=== PATIENT | female | born 1960 | race African-American/Black ===

== ENCOUNTER → 2017-02-11 | Outpatient (CLI) | payer BC ==
--- NOTE | 2017-02-11 12:09 | RAD ---
DATE: 02/11/2017 EXAM: DIGITAL SCREEN BILAT W/CAD HISTORY: Routine screening COMPARISON: 01/01/2016 This study was interpreted with the benefit of Computerized Aided Detection (CAD). The breast parenchyma shows scattered fibroglandular densities. Breast parenchyma level B. FINDINGS: An oval-shaped nodule is again noted laterally in the left breast and is unchanged. A previous ultrasound study suggested that this is a cyst. No new or enlarging breast densities are seen. No suspicious microcalcifications are evident. IMPRESSION: Stable mammograms without evidence of malignancy. BI-RADS CATEGORY: 2 BENIGN FINDING(S) RECOMMENDED FOLLOW-UP: 12M 12 MONTH FOLLOW-UP PQRS compliance statement: Patient information was entered into a reminder system with a target due date for the next mammogram. Mammography is a sensitive method for finding small breast cancers, but it does not detect them all and is not a substitute for careful clinical examination. A negative mammogram does not negate a clinically suspicious finding and should not result in delay in biopsying a clinically suspicious abnormality. "Our facility is accredited by the [employer] Mammography [employer]."
--- NOTE | 2017-02-11 17:57 | RAD ---
Left clavicular region ultrasound, 02/11/2017: History: Pain The area of clinical concern in the left periclavicular region was carefully scanned. No cystic or solid mass is seen. Several small lymph nodes are noted in the lower neck without evidence of pathologic enlargement. IMPRESSION: No significant abnormality is detected. If clinical concern persists, CT scanning may be useful for further evaluation.
== END | disposition home or self-care (01) ==
LOC: MAMMO 10:21
PROVIDERS: ATTEND Nurse Practitioner Family
DX: Z12.31 Encounter for screening mammogram for malignant neoplasm of breast (principal); M79.9 Soft tissue disorder, unspecified; E78.5 Hyperlipidemia, unspecified; E55.9 Vitamin D deficiency, unspecified; H92.01 Otalgia, right ear; Z71.6 Tobacco abuse counseling; Z72.0 Tobacco use
CPT/HCPCS: 76881; G0202; 77067

== ENCOUNTER → 2018-04-14 | Outpatient (CLI) | payer BC ==
[~2018-04-14] MED LIST: IOHEXOL 240 MG/ML 50ML VIAL. ONE; IOHEXOL 300 MG/ML 75 ML VIAL. IV ONE
--- NOTE | 2018-04-14 10:01 | RAD ---
Examination: CT of the abdomen pelvis with oral and IV contrast HISTORY: History of epigastric pain, right lower quadrant pain, mass 1 inch superior to the umbilicus. COMPARISON: None available TECHNIQUE: Axial CT images of the abdomen pelvis with oral and IV contrast. Coronal reformats are performed. Exposure: One or more of the following individualized dose reduction techniques were utilized for this examination: 1. Automated exposure control 2. Adjustment of the mA and/or kV according to patient size 3. Use of iterative reconstruction technique FINDINGS: Patchy groundglass airspace opacities identified in the bibasilar lungs. No evidence of free air identified in the abdomen. There is mild diffuse decreased attenuation noted in the liver likely hepatic steatosis. The visualized spleen, adrenals grossly appears unremarkable. The gallbladder is mildly distended. The small bowel is nondilated. The visualized pancreas grossly appears unremarkable. The appendix is normal. Feces and gas noted in the colon. Multiple colon diverticulosis identified. Urinary bladder is mildly distended. The bilateral kidneys enhance symmetrically. Vascular stent in the left iliac vein identified. Mild aortic atherosclerosis. No evidence of lytic bony destructive lesion. IMPRESSION: 1. No acute abdominal findings. 2. Mild hepatic steatosis. 2. Patchy groundglass airspace opacities identified in the bibasilar lungs probably atelectasis. 4. Multiple sigmoid colon diverticulosis. Electronically signed by: Geovany Jones MD (04/14/2018 9:57 AM) [id number]
--- NOTE | 2018-04-15 08:54 | RAD ---
DATE: 04/14/2018 EXAM: DIGITAL SCREEN BILAT W/CAD HISTORY: Screening evaluation COMPARISON: 02/11/2017 and 12/13/2015 screen mammograms This study was interpreted with the benefit of Computerized Aided Detection (CAD ). Breast Density: SCATTERED The breast parenchyma shows scattered fibroglandular densities. Breast parenchyma level B. FINDINGS: Parenchymal distribution is stable. No suspicious calcifications, masses, or distortion. IMPRESSION: BI-RADS CATEGORY: 2 BENIGN FINDING(S) RECOMMENDED FOLLOW-UP: PQRS compliance statement: Patient information was entered into a reminder system with a target due date in 1 year for the next mammogram. Mammography is a sensitive method for finding small breast cancers, but it does not detect them all and is not a substitute for careful clinical examination. A negative mammogram does not negate a clinically suspicious finding and should not result in delay in biopsying a clinically suspicious abnormality. "Our facility is accredited by the [employer] Mammography [employer]." [id number]
== END | disposition home or self-care (01) ==
LOC: CT 08:02
PROVIDERS: ATTEND Nurse Practitioner Family
DX: Z12.31 Encounter for screening mammogram for malignant neoplasm of breast (principal); K57.30 Diverticulosis of large intestine without perforation or abscess without bleeding; K76.0 Fatty (change of) liver, not elsewhere classified; I70.0 Atherosclerosis of aorta; E78.5 Hyperlipidemia, unspecified
CPT/HCPCS: 74177; 77067; Q9966; Q9967

== ENCOUNTER → 2018-06-02 | Outpatient (CLI) | payer BC ==
[~2018-06-02] MED LIST changes: -IOHEXOL 240 MG/ML 50ML VIAL. ONE; -IOHEXOL 300 MG/ML 75 ML VIAL. IV ONE; +MULT1TAB52 PO
--- NOTE | 2018-06-02 11:35 | RAD ---
ABDOMEN LTD History: Abdominal pain, nausea Comparison: None. Findings: Multiple sonographic images of the abdomen are submitted. No focal hepatic lesion is demonstrated although there is coarsening of the hepatic echotexture. There is likely focal fatty sparing near the gallbladder fossa. Right lobe liver measured 14 cm longitudinal. Right kidney measured 10.9 x 4.5 x 4.6 cm, no hydronephrosis. Gallbladder is present without intraluminal abnormality, wall thickening, pericholecystic fluid. Common bile duct is within normal limits at 0.3 cm. There is segmental visualization of the inferior vena cava. Impression: 1. There is coarsening of the hepatic echotexture likely due to hepatic steatosis. Electronically signed by: Melvin Carlisle MD (06/02/2018 11:32 AM) [id number]
== END | disposition home or self-care (01) ==
LOC: US 09:47
PROVIDERS: ATTEND Internal Medicine Gastroenterology
DX: R10.84 Generalized abdominal pain (principal); R11.0 Nausea
CPT/HCPCS: 76705

== ENCOUNTER → 2018-06-14 | Day surgery (SDC) | payer BC ==
[~2018-06-14] MED LIST changes: +ALBUTEROL SULFATE 2.5 MG/3 ML NEBU. NEB PRN; +ATROPINE 0.5 MG/5 ML DISP.SYRIN. IV PRN; +IV RINGERS SOLUTION,LACTATED 1,000 ML IV SCH; +LIDOCAINE 2% PF Vial for OR 5 ML VIAL. ONE; +NALOXONE 0.4 MG/ML VIAL. IV PRN; +ONDANSETRON PF 4 MG/2 ML VIAL. IV PRN; +PROPOFOL 20 ML IV ONE
[2018-06-14 14:15] VITALS: BP 113/60
== END | disposition home or self-care (01) ==
LOC: SURG 13:02
PROVIDERS: ATTEND Internal Medicine Gastroenterology
DX: R10.13 Epigastric pain (principal); R14.0 Abdominal distension (gaseous); E78.00 Pure hypercholesterolemia, unspecified; E55.9 Vitamin D deficiency, unspecified; Z88.0 Allergy status to penicillin; Z88.1 Allergy status to other antibiotic agents; Z79.899 Other long term (current) drug therapy; Z98.890 Other specified postprocedural states; Z82.3 Family history of stroke; Z82.49 Family history of ischemic heart disease and other diseases of the circulatory system; Z87.891 Personal history of nicotine dependence; Z80.0 Family history of malignant neoplasm of digestive organs
CPT/HCPCS: 43239; J2704; J7120; 43235; J2001

== ENCOUNTER → 2018-11-29 | Day surgery (SDC) | payer BC ==
[~2018-11-29] MED LIST changes: +CHOL100013 PO; +OMEG1CAP38 PO; +PANT40TA5 PO; -PROPOFOL 20 ML IV ONE; +PROPOFOL 40 ML IV ONE; +diphenhydrAMINE 50 MG/ML VIAL IV PRN
[2018-11-29 10:15] VITALS: BP 120/69
== END | disposition home or self-care (01) ==
LOC: SURG 07:55
PROVIDERS: ATTEND Internal Medicine Gastroenterology
DX: Z12.11 Encounter for screening for malignant neoplasm of colon (principal); D12.2 Benign neoplasm of ascending colon; D12.5 Benign neoplasm of sigmoid colon; K57.30 Diverticulosis of large intestine without perforation or abscess without bleeding; Z88.0 Allergy status to penicillin; Z88.1 Allergy status to other antibiotic agents; Z79.899 Other long term (current) drug therapy
CPT/HCPCS: 45380; 45385; J2704; J7120; J2001

== ENCOUNTER → 2019-05-19 | Outpatient (CLI) | payer BC ==
[2018-11-29 10:15] VITALS: BP 120/69
[~2019-05-19] MED LIST changes: -ALBUTEROL SULFATE 2.5 MG/3 ML NEBU. NEB PRN; -ATROPINE 0.5 MG/5 ML DISP.SYRIN. IV PRN; -IV RINGERS SOLUTION,LACTATED 1,000 ML IV SCH; -LIDOCAINE 2% PF Vial for OR 5 ML VIAL. ONE; -NALOXONE 0.4 MG/ML VIAL. IV PRN; -ONDANSETRON PF 4 MG/2 ML VIAL. IV PRN; -PROPOFOL 40 ML IV ONE; -diphenhydrAMINE 50 MG/ML VIAL IV PRN
--- NOTE | 2019-05-19 14:13 | RAD ---
DATE: 05/19/2019 12:50 PM EXAM: DIGITAL SCREEN BILAT W/CAD HISTORY: Screening COMPARISON: April 14, 2018 and February 11, 2017 Bilateral full field craniocaudal and mediolateral oblique images were obtained using digital technique. This study was interpreted with the benefit of Computerized Aided Detection (CAD). FINDINGS: Breast Density: SCATTERED The breast parenchyma shows scattered fibroglandular densities. Breast parenchyma level B Unchanged left breast upper outer cyst. No suspicious masses, microcalcifications or architectural distortion is present to suggest malignancy in either breast. The visualized axillae are unremarkable. IMPRESSION: No mammographic evidence of malignancy. BI-RADS CATEGORY: 2 BENIGN FINDING(S) RECOMMENDED FOLLOW-UP: 12M 12 MONTH FOLLOW-UP Annual screening mammography is recommended, unless clinically indicated sooner based on symptoms or change in physical exam. PQRS compliance statement: Patient information was entered into a reminder system with a target due date one year for the next mammogram. Mammography is a sensitive method for finding small breast cancers, but it does not detect them all and is not a substitute for careful clinical examination. A negative mammogram does not negate a clinically suspicious finding and should not result in delay in biopsying a clinically suspicious abnormality. "Our facility is accredited by the [employer] Mammography [employer]."
--- NOTE | 2019-05-19 16:54 | RAD ---
US PELVIS W/TV History: Postmenopausal bleeding. Comparison: None. Technique: Grayscale and color Doppler imaging of the pelvis was performed using transabdominal and transvaginal technique. Findings: The uterus measures 6.5 x 3.0 x 3.9 cm in length. Uterus has an unremarkable appearance. Thickened endometrium measures 1.0 cm. No evidence of increased Doppler flow. Bilateral ovaries not identified due to positioning and overlying bowel gas. No adnexal mass or fluid collection. IMPRESSION: 1. Thickened endometrium, may represent endometrial hyperplasia, polyp or endometrial carcinoma. Recommend further clinical evaluation and biopsy if indicated. 2. Bilateral ovaries not identified. Electronically signed by: Octavio Bhatti DO (05/19/2019 4:51 PM) [facility]
== END | disposition home or self-care (01) ==
LOC: US 12:20
PROVIDERS: ATTEND Social Worker Clinical
DX: Z12.31 Encounter for screening mammogram for malignant neoplasm of breast (principal); N60.02 Solitary cyst of left breast; R93.89 Abnormal findings on diagnostic imaging of other specified body structures; N95.0 Postmenopausal bleeding
CPT/HCPCS: 76830; 76856; 77067

== ENCOUNTER 2020-05-13 10:46 | Emergency (ER) | payer BC, OTHER ==
[~2020-05-13] VITALS: Ht 162.6 cm; Wt 92.0 kg
[~2020-05-13 10:46] MED LIST changes: +MULT-445 PO; -MULT1TAB52 PO; -PANT40TA5 PO; +PANT40TA6 PO
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
[2020-05-13] MEDS ORDERED: ACETAMINOPHEN 325 MG TABLET PO ONE (11:15)
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
[2020-05-13 12:06] VITALS: BP 136/67
== END 2020-05-13 12:06 | disposition home or self-care (01) ==
LOC: ER 10:46
DX: R51.9 Headache, unspecified (principal); Z88.0 Allergy status to penicillin; Z88.1 Allergy status to other antibiotic agents; V49.9XXA Car occupant (driver) (passenger) injured in unspecified traffic accident, initial encounter; Y93.I9 Activity, other involving external motion; Y92.488 Other paved roadways as the place of occurrence of the external cause; Y99.8 Other external cause status
CPT/HCPCS: 70450; 99284-25